=== PATIENT | female | born 1990 | race Two or more races ===

== ENCOUNTER 2018-12-06 17:58 | Emergency (ER) | payer MEDICAID ==
[~2018-12-06] VITALS: Ht 162.6 cm; Wt 59.4 kg
[2018-12-06] MEDS ORDERED: GADODIAMIDE 2.5 MMOL/5 ML VIAL IJ ONE (18:01)
--- NOTE | 2018-12-06 18:15 | NUR ---
BIB SELF W C/O FEVER LAST NIGHT 103.0 F, HAVING URINE INCONTINENCE, TO ER BED 10, HOOKED TO MONITOR, AWAITING MD SALGADO.
--- NOTE | 2018-12-06 18:40 | NUR ---
ELECTRIC MELT OPERATOR DEGRASSE AT BEDSIDE
[2018-12-06 18:58] LABS: APPEARANCE,URINE Clear (CLEAR); BILIRUBIN,URINE SMALL (NEGATIVE); BLOOD, URINE Moderate Ery/uL (NEGATIVE); COLOR,URINE Dark (YELLOW); KETONES,URINE 15 (NEGATIVE); LEUKOCYTE ESTERASE ,URINE Negative (NEGATIVE); NITRITE, URINE Negative (NEGATIVE); PH,URINE 5.5 (5.0-8.0); PROTEIN,URINE 100 mg/dl (NEGATIVE); UGLUCOSE Negative (NEGATIVE)
[2018-12-06] MEDS ORDERED: VANCOMYCIN 1 GM in IV D5W 250 ML IV ONE (19:00)
[2018-12-06] MEDS ORDERED: PIPERACILLIN /TAZOBACTAM 3.375 G in IV D5W 50 ML IV ONE (19:00)
[2018-12-06] MEDS ORDERED: IV NS 0.9% 1,000 ML BAG IV ONE (19:00)
[2018-12-06 19:11] LABS: BASOPHILS % (AUTO) 0.3 % (0.0-2.0); HEMATOCRIT 34 % (33-45); HEMOGLOBIN 11.2 g/dL (11.5-14.8); LYMPHOCYTES # (AUTO) 0.9 /CMM (0.8-4.8); LYMPHOCYTES % (AUTO) 13.5 % (20.0-44.0); MEAN CORPUSCULAR HGB CONC 33 g/dl (31.0-36.0); MEAN CORPUSCULAR VOLUME 81 fL (82-100); MONOCYTES # (AUTO) 0.3 /CMM (0.1-1.30); MONOCYTES % (AUTO) 3.9 % (2.0-12.0); NEUTROPHILS # (AUTO) 5.7 /CMM (1.8-8.9); NEUTROPHILS % (AUTO) 82.3 % (43.0-81.0); PLATELET COUNT (AUTO) 197 /CMM (150-450); RED BLOOD CELL COUNT(AUTO) 4.12 MIL/uL (4.0-5.2); WHITE BLOOD COUNT (AUTO) 6.9 K/uL (4.3-11.0)
[2018-12-06 19:25] LABS: CALCIUM, SERUM 8.6 mg/dL (8.5-10.1); CARBON DIOXIDE 28 mmol/L (21-32); CHLORIDE 98 mmol/L (98-107); CREATININE 0.7 mg/dL (0.6-1.3); GLUCOSE 112 mg/dL (74-106); POTASSIUM 3.4 mmol/L (3.5-5.1); SODIUM SERUM 133 mmol/L (136-145); UREA NITROGEN, BLOOD 12 mg/dL (7-18)
[2018-12-06 19:30] LABS: ALANINE AMINOTRANSFERASE 60 U/L (12-78); ALBUMIN 3.1 g/dL (3.4-5.0); ALKALINE PHOSPHATASE 160 U/L (46-116); ASPARTATE AMINOTRANSFERASE 42 U/L (15-37); BILIRUBIN,DIRECT 0.2 mg/dL (0.0-0.2); BILIRUBIN,TOTAL 0.5 mg/dL (0.2-1.0); TOTAL PROTEIN, SERUM 7.9 g/dL (6.4-8.2)
[2018-12-06 19:33] LABS: BACTERIA,URINE Few /HPF (None Seen); MUCUS,URINE Many /LPF (None Seen); SQUAMOUS EPITHELIAL CELL,UR Few /HPF (None Seen); WBC,URINE 0-2 /HPF (0-3)
--- NOTE | 2018-12-06 19:38 | NUR ---
REPORT GIVEN TO DEMARCUS DESAI FOR [facility]
--- NOTE | 2018-12-06 19:40 | NUR ---
RECEIVED REPORT FROM ANUPAMA DESAI FOR [facility]
--- NOTE | 2018-12-06 21:30 | NUR ---
PT BROUGHT BY RADIOLOGY FOR MRI
--- NOTE | 2018-12-06 22:22 | NUR ---
PT RETURNED FOM MRI
--- NOTE | 2018-12-06 22:30 | NUR ---
PT RESTING COMFORTABLY IN BED. NO ACUTE DISTRESS NOTED. WILL CONTINUE TO MONITOR
--- NOTE | 2018-12-06 23:26 | NUR ---
Received a call from [facility] and spoke to Zehra. She said she was arranging for transport and acceptance. Faxed clinicals to [phone]. Awaiting call back.
[2018-12-06] MEDS ORDERED: IV D5/0.45 NACL 1,000 ML IV ONE (23:30)
--- NOTE | 2018-12-06 23:42 | NUR ---
SPOKE TO UYEN AT [facility] RE: PT'S INSURANCE.
--- NOTE | 2018-12-07 00:45 | NUR ---
CALLED [facility] FOR UPDATES AND STATES "WE'RE WAITING FOR A BED AT THIS TIME; WILL LET YOU KNOW WHEN WE HAVE ONE". MARTINAII/POWER TRANSFORMER REPAIRER NOTIFIED.
--- NOTE | 2018-12-07 01:10 | NUR ---
PT RESTING COMFORTABLY IN BED. DOZING INTERMITTENTLY, EASILY AROUSABLE. VITAL SIGNS STABLE. NO ACUTE DISTRESS NOTED. PT STILL ON CONTINUOUS MONITOR, WILL CONTINUE TO MONITOR
--- NOTE | 2018-12-07 02:17 | NUR ---
RECEIVED CALL BACK FROM [facility]. TO ROOM [id number]; [phone] EXT [phone]
[2018-12-07 02:18] VITALS: BP 94/56
--- NOTE | 2018-12-07 02:37 | NUR ---
GAVE REPORT TO LOTTIE DESAI FROM [facility] FOR [facility]
--- NOTE | 2018-12-07 02:56 | NUR ---
GAVE REPORT TO RICAROD FROM [place] [id number] FOR TRANSPORTATION [facility]
== END 2018-12-07 02:59 | disposition short-term general hospital (02) ==
LOC: ER 18:00
DX: M51.27 Other intervertebral disc displacement, lumbosacral region (principal)
CPT/HCPCS: 36415; 72158; 80048; 80076; 81001; 83605; 84484; 84703; 85025; 85652; 85730; 86140; 87040 ×2; 87081; 87086; 96365; 96366; 96367; 99285; A4606; J2543; J3370; J3490; J7030; J7060 ×2; Z7610; 81000-TC; A9579

== ENCOUNTER 2019-12-11 09:43 | Emergency (ER) | payer MEDICAID ==
[~2019-12-11] VITALS: Ht 162.6 cm; Wt 70.8 kg
--- NOTE | 2019-12-11 10:05 | NUR ---
C/O FEVER AND CHILLS WITH HOT FLASHES X 1 WEEK, TOOK IBUPROFEN/TYLENOL, TO ER BED 6, HOOKED TO MONITOR, CHANGED TO [facility] GOW, PROVIDED W WARM BLANKET, AWAITING MD SALGADO
--- NOTE | 2019-12-11 10:06 | NUR ---
DR MERINO AT BEDSIDE
[2019-12-11 11:30] VITALS: BP 103/60
--- NOTE | 2019-12-11 11:30 | NUR ---
Patient discharged to home in stable condition. Written and verbal after care instructions given. Patient verbalizes understanding of instruction.
== END 2019-12-11 11:30 | disposition home or self-care (01) ==
LOC: ER 09:43
DX: B34.9 Viral infection, unspecified (principal); Z60.2 Problems related to living alone

== ENCOUNTER 2021-03-08 13:58 | Emergency (ER) | payer MEDICAID ==
[~2021-03-08] VITALS: Ht 162.6 cm; Wt 72.6 kg
--- NOTE | 2021-03-08 14:30 | NUR ---
patient came in to the er c/o fever x 3 days, temporary relief from tylenol. On room air, breathing evenyl and unlabored. COnnected to the monitor and pulse ox. kept comfortable, will continue to monitor accordingly.
[2021-03-08] MEDS ORDERED: IV NS 0.9% 1,000 ML BAG IV ONE (15:30)
[2021-03-08 16:07] LABS: BASOPHILS % (AUTO) 0.3 % (0.0-2.0); HEMATOCRIT 45 % (33-45); HEMOGLOBIN 15.1 g/dL (11.5-14.8); LYMPHOCYTES # (AUTO) 1.3 /CMM (0.8-4.8); LYMPHOCYTES % (AUTO) 17.9 % (20.0-44.0); MEAN CORPUSCULAR HGB CONC 34 g/dl (31.0-36.0); MEAN CORPUSCULAR VOLUME 89 fL (82-100); MONOCYTES # (AUTO) 0.5 /CMM (0.1-1.30); MONOCYTES % (AUTO) 7.1 % (2.0-12.0); NEUTROPHILS # (AUTO) 5.3 /CMM (1.8-8.9); NEUTROPHILS % (AUTO) 74.7 % (43.0-81.0); PLATELET COUNT (AUTO) 166 /CMM (150-450); RED BLOOD CELL COUNT(AUTO) 5.06 MIL/uL (4.0-5.2); WHITE BLOOD COUNT (AUTO) 7.1 K/uL (4.3-11.0)
[2021-03-08 16:14] LABS: BILIRUBIN,URINE SMALL (NEGATIVE); COLOR,URINE YELLOW (YELLOW); LEUKOCYTE ESTERASE ,URINE MODERATE (NEGATIVE); NITRITE, URINE POSITIVE (NEGATIVE); PH,URINE 7.5 (5.0-8.0); PROTEIN,URINE 30 mg/dl (NEGATIVE); UGLUCOSE NEGATIVE (NEGATIVE)
[2021-03-08 16:23] LABS: BACTERIA,URINE 4+ /HPF (None Seen); SQUAMOUS EPITHELIAL CELL,UR 0-2 /HPF (None Seen); WBC,URINE 51-80 /HPF (0-3)
[2021-03-08 16:39] LABS: ALBUMIN 3.9 g/dL (3.4-5.0); BILIRUBIN,DIRECT 0.2 mg/dL (0.0-0.2); BILIRUBIN,TOTAL 0.5 mg/dL (0.2-1.0); CALCIUM, SERUM 8.5 mg/dL (8.5-10.1); CREATININE 0.9 mg/dL (0.6-1.3); POTASSIUM 3.8 mmol/L (3.5-5.1); TOTAL PROTEIN, SERUM 8.5 g/dL (6.4-8.2)
[2021-03-08] MEDS ORDERED: CEFTRIAXONE 1GM BAG (ER ONLY) 50 ML IV ONE (16:59)
[2021-03-08] MEDS ORDERED: CEFTRIAXONE 1 G in IV D5W 50 ML IV ONE (17:00)
[2021-03-08] MEDS ORDERED: ACETAMINOPHEN ES 500 MG TABLET ONE (18:06)
[2021-03-08] MEDS ORDERED: ACETAMINOPHEN 325 MG TABLET PO ONE (18:30)
[2021-03-08] MEDS ORDERED: IBUPROFEN 600 MG TABLET PO ONE (19:30)
[2021-03-08] MEDS ORDERED: CEPH500C2 PO (19:53)
[2021-03-08] MEDS ORDERED: IBUPROFEN 600 MG TABLET ONE (20:04)
[2021-03-08 20:11] VITALS: BP 131/65
--- NOTE | 2021-03-08 20:11 | NUR ---
Patient discharged to home in stable condition. Written and verbal after care instructions given. Patient verbalizes understanding of instruction.IV removed. Catheter intact and site benign. Pressure and 4x4 applied to site. No bleeding noted. Pt ambulatory with a steady gait
== END 2021-03-08 20:12 | disposition home or self-care (01) ==
LOC: ER 14:02
DX: N12 Tubulo-interstitial nephritis, not specified as acute or chronic (principal); Z20.822 Contact with and (suspected) exposure to COVID-19; Z82.49 Family history of ischemic heart disease and other diseases of the circulatory system; B96.20 Unspecified Escherichia coli [E. coli] as the cause of diseases classified elsewhere
CPT/HCPCS: 36415; 71045; 80048; 80076; 81001; 83605; 84702; 85025; 87040 ×2; 87077; 87086; 87186; 87426; 96361; 96365; 99284; C9803 ×2; J0696; J7030; J7060; U0003

== ENCOUNTER 2023-12-10 17:19 | Emergency (ER) | payer MEDICAID ==
[~2023-12-10] VITALS: Ht 162.6 cm; Wt 85.3 kg
[~2023-12-10 17:19] MED LIST: CEPH500C2 PO
[2023-12-10 18:10] VITALS: BP 108/77; TEMP 98.5; O2SAT 98
[2023-12-10] MEDS ORDERED: KETOROLAC TROMETHAMINE INJ 30 MG/ML VIAL ONE (18:33)
[2023-12-10] MEDS: KETOROLAC TROMETHAMINE INJ 60 MG/2 ML VIAL IM ONE (18:42)
[2023-12-10] MEDS ORDERED: KETO10TA2 PO (19:44)
== END 2023-12-10 19:50 | disposition home or self-care (01) ==
LOC: ER 17:26
DX: M54.50 Low back pain, unspecified (principal); Z79.899 Other long term (current) drug therapy
CPT/HCPCS: 99285; 72131; 96372; J1885